=== PATIENT | female | born 1980 | race Caucasian/White ===

== ENCOUNTER 2019-08-27 08:22 | Outpatient (CLI) | payer OTHER | END 2019-08-27 09:30 | LOC: D.OPS 08:22 | PROVIDERS: ATTEND Internal Medicine Gastroenterology | DX: R93.3 Abnormal findings on diagnostic imaging of other parts of digestive tract (principal); R13.12 Dysphagia, oropharyngeal phase ==

== ENCOUNTER 2020-07-15 09:23 | Emergency (ER) | payer OTHER ==
[~2020-07-15] VITALS: Ht 165.1 cm; Wt 99.1 kg
[2020-07-15 09:25] VITALS: BP 148/92; Ht 165.1 cm; Wt 99.1 kg
[2020-07-15] MEDS ORDERED: LEXAPRO10 MG PO (09:28)
[2020-07-15] MEDS ORDERED: BENZTROPINE MESY2 MG PO (09:28)
[2020-07-15] MEDS ORDERED: SEROQUEL300 MG PO (09:28)
[2020-07-15] MEDS ORDERED: FLUTICASONE PRO16 GM NASAL (09:29)
[2020-07-15] MEDS ORDERED: BIKTARVY 50-201 EACH PO (09:29)
[2020-07-15] MEDS ORDERED: XANAX0.5 MG PO (09:29)
[2020-07-15] MEDS ORDERED: CLEOCIN HCL150 MG PO (10:35)
== END 2020-07-15 10:40 | disposition home or self-care (01) ==
LOC: D.ER 09:23
DX: I88.9 Nonspecific lymphadenitis, unspecified (principal); R07.89 Other chest pain; T63.331A Toxic effect of venom of brown recluse spider, accidental (unintentional), initial encounter; B99.9 Unspecified infectious disease; R05 Cough

== ENCOUNTER → 2020-08-23 | Emergency (ER) | payer OTHER ==
[2020-07-15 09:25] VITALS: Ht 165.1 cm; Wt 102.3 kg
[~2020-08-23] VITALS: Ht 165.1 cm; Wt 102.3 kg
[~2020-08-23] MED LIST: BENZTROPINE MESY2 MG PO; BIKTARVY 50-201 EACH PO; CLEOCIN HCL150 MG PO; FLUTICASONE PRO16 GM NASAL; LEXAPRO10 MG PO; SEROQUEL300 MG PO; STERAPRED DS 1210 MG PO; XANAX0.5 MG PO
[2020-08-23 10:34] LABS: ANION GAP 7.8 mmol/L (8-16); CALCIUM 9.2 mg/dL (8.5-10.1); CARBON DIOXIDE 30.3 mmol/L (21.0-32.0); CREATININE - SERUM 0.9 mg/dL (0.6-1.3); POTASSIUM - SERUM 4.1 mmol/L (3.5-5.1)
[2020-08-23 10:41] LABS: ALBUMIN 2.9 g/dL (3.4-5.0); BILIRUBIN - TOTAL 0.11 mg/dL (0.2-1.3); PROTEIN - SERUM 7.6 g/dL (6.4-8.2)
[2020-08-23 10:42] LABS: BASOPHILS 0.5 % (0-2); EOSINOPHILS 3.1 % (0-7); HEMATOCRIT 38.5 % (36.0-48.0); HEMOGLOBIN 12.6 g/dL (12-16); LYMPHOCYTES 23.4 % (15-50); MCH 26.7 pg (26.0-34.0); MCHC 32.6 g/dL (31.0-37.0); MCV 81.9 fL (80.0-100.0); MEAN PLATELET VOLUME 7.1 fL (7.4-10.4); MONOCYTES 7.1 % (2-11); NEUTROPHILS 65.9 % (40-80); PLATELET COUNT 318 10x3/uL (130-400); RBC 4.71 10x6/uL (4.00-5.40); RDW 16.9 % (11.5-14.5); WBC 8.2 10x3/uL (4.8-10.8)
[2020-08-23 12:57] LABS: UDS - AMPHET NEGATIVE QUAL (NEGATIVE); UDS - BARB NEGATIVE QUAL (NEGATIVE); UDS - BENZO NEGATIVE QUAL (NEGATIVE); UDS - COCAINE NEGATIVE QUAL (NEGATIVE); UDS - OPIATE NEGATIVE QUAL (NEGATIVE); UDS - PCP NEGATIVE QUAL (NEGATIVE); UDS - THC NEGATIVE QUAL (NEGATIVE)
[2020-08-23 13:11] LABS: BACTERIA FEW HPF (<MOD); BILIRUBIN NEGATIVE (NEGATIVE); KETONE NEGATIVE mg/dL (< 1+); NITRITE NEGATIVE (NEGATIVE); SQUAMOUS EPITHELIAL 4 HPF (0-4); UROBILINOGEN NORMAL mg/dL (< 2); WHITE CELLS - URINE 40 HPF (0-4)
[2020-08-23 14:05] VITALS: BP 158/70
== END | disposition home or self-care (01) ==
LOC: D.ER 09:32
PROVIDERS: Emergency Medicine
DX: M50.30 Other cervical disc degeneration, unspecified cervical region (principal)